=== PATIENT | male | born 2000 | race Caucasian/White ===

== ENCOUNTER 2022-08-21 07:37 | Emergency (ER) | payer BC, OTHER ==
[2022-08-21] MEDS ORDERED: Ondansetron 4 MG/2 ML SDV IVPUSH ONE ×2 (07:42→10:47)
[2022-08-21] MEDS ORDERED: fentaNYL 50 MCG/ML SDV IVPUSH ONE (07:42)
[2022-08-21] MEDS ORDERED: Sodium Chloride 0.9% 10 ML Syringe FLUSH PRN (07:42)
[2022-08-21] MEDS ORDERED: Sodium Chloride 0.9% 2.5 ML Syringe FLUSH PRN (07:42)
[2022-08-21] MEDS ORDERED: Sodium Chloride 0.9% 1,000 ML IV ONE ×2 (07:42→09:36)
[2022-08-21] MEDS ORDERED: Ondansetron 4 MG/2 ML SDV ONE ×2 (07:50→10:47)
[2022-08-21] MEDS ORDERED: fentaNYL 50 MCG/ML SDV ONE (07:50)
[2022-08-21] MEDS ORDERED: Iopamidol 755 MG/ML 500 ML Multipack Bottle IVPUSH STA ×2 (08:20→09:22)
[2022-08-21 08:32] LABS: BLOOD UREA NITROGEN,BUN 18 mg/dL (7.0-18.0); CARBON DIOXIDE,CO2 13.2 mmol/L (21.0-32.0); CHLORIDE,CL 101 mmol/L (98-107); GLUCOSE RANDOM 469 mg/dL (74-106); LIPASE 331 U/L (73-393); POTASSIUM,K 3.6 mmol/L (3.5-5.1); SODIUM,NA 135 mmol/L (136-148)
[2022-08-21 09:10] LABS: ESTIMATED GFR 58 mL/min (>60)
[2022-08-21] MEDS ORDERED: 50% Dextrose in Water 50 ML Syringe IVPUSH PRN (09:38)
[2022-08-21] MEDS ORDERED: Insulin Regular, Human 100 Units/ML 10 ML Vial IVPUSH ONE (09:38)
[2022-08-21] MEDS ORDERED: Glucagon,Human Recombinant 1 MG Vial IM PRN (09:38)
[2022-08-21] MEDS ORDERED: Diphtheria,Pertussis(Acell),Tetanus Vaccine 0.5 ML Syringe IM ONE (09:43)
[2022-08-21 09:45] LABS: CORONAVIRUS COVID-19 NAA NEGATIVE (NEGATIVE); INFLUENZA A NAA NEGATIVE (NEGATIVE); INFLUENZA B NAA NEGATIVE (NEGATIVE); RESPIRATORY SYNCYTIAL VIR NAA NEGATIVE (NEGATIVE)
[2022-08-21] MEDS ORDERED: Insulin Regular in 0.9 % NACL 100 ML IV SCH (09:45)
[2022-08-21] MEDS ORDERED: Tranexamic Acid 1,000 MG/10 ML Vial IV ONE ×2 (10:33→10:34)
[2022-08-21] MEDS ORDERED: Tranexamic Acid 1,000 MG/10 ML Vial ONE (10:35)
[2022-08-21] MEDS ORDERED: Lidocaine 2% Viscous Solution 15 ML UD ONE (10:41)
[2022-08-21] MEDS ORDERED: Lidocaine 2% Viscous Solution 15 ML UD PO ONE (10:42)
[2022-08-21] MEDS ORDERED: fentaNYL 100 MCG/2 ML SDV IVPUSH ONE (10:53)
[2022-08-21] MEDS ORDERED: fentaNYL 100 MCG/2 ML SDV ONE (10:53)
[2022-08-21] MEDS ORDERED: Rocuronium 100 MG/10 ML MDV IVPUSH ONE (11:00)
[2022-08-21] MEDS ORDERED: Atropine 0.1 MG/ML 10 ML Syringe ONE (11:01)
[2022-08-21] MEDS: EPINEPHrine 1:10,000 1 MG/10 ML Syringe IVPUSH ONE ×16 (11:02→13:18)
[2022-08-21] MEDS ORDERED: Pantoprazole 80 MG in Sodium Chloride 0.9% 10 ML IVPUSH ONE (11:23)
[2022-08-21] MEDS ORDERED: SODIUM CHLORIDE 0.9% IV SCH (11:30)
[2022-08-21] MEDS ORDERED: KETAMINE IV SCH (11:30)
[2022-08-21] MEDS ORDERED: Adenosine 6 MG/2 ML SDV ONE (11:49)
[2022-08-21] MEDS ORDERED: Adenosine 6 MG/2 ML SDV IVPUSH ONE (11:50)
[2022-08-21] MEDS ORDERED: Ketamine 500 mg/10 ML MDV ONE (12:04)
[2022-08-21] MEDS ORDERED: Norepinephrine Bit/D5W Premix 250 ML ONE (12:16)
[2022-08-21] MEDS ORDERED: Sodium Bicarbonate 8.4% 50 MEQ/50 ML Syringe IVPUSH ONE (12:20)
[2022-08-21 12:28] LABS: CARBON DIOXIDE,CO2 17.8 mmol/L (21.0-32.0); POTASSIUM,K 3.3 mmol/L (3.5-5.1)
[2022-08-21] MEDS ORDERED: Norepinephrine Bit/D5W Premix 250 ML IV SCH (12:30)
[2022-08-21] MEDS ORDERED: Norepinephrine 4 MG in Dextrose 5% in Water 246 ML IV SCH ×2 (12:45)
[2022-08-21] MEDS ORDERED: EPINEPHrine 1 MG/1 ML Amp ONE (13:12)
== END 2022-08-21 13:21 | disposition expired ==
LOC: MW.ED 07:37
DX: S22.31XA Fracture of one rib, right side, initial encounter for closed fracture (principal); S26.00XA Unspecified injury of heart with hemopericardium, initial encounter; S27.301A Unspecified injury of lung, unilateral, initial encounter; I21.4 Non-ST elevation (NSTEMI) myocardial infarction; J98.4 Other disorders of lung; I71.019 Dissection of thoracic aorta, unspecified; E11.10 Type 2 diabetes mellitus with ketoacidosis without coma; N17.9 Acute kidney failure, unspecified; R77.8 Other specified abnormalities of plasma proteins; Z20.822 Contact with and (suspected) exposure to COVID-19; Z88.0 Allergy status to penicillin; Z23 Encounter for immunization; V49.40XA Driver injured in collision with unspecified motor vehicles in traffic accident, initial encounter; Y92.410 Unspecified street and highway as the place of occurrence of the external cause
CPT/HCPCS: 0241U; 31500; 36415; 36430; 36600; 43752; 70450; 71045; 71260; 71275; 72125; 73552; 73562; 74177; 80053; 80305; 80307; 81001; 82803; 82947; 83605; 83690; 83735; 84484; 85025; 85610; 85730; 86850; 86900; 86901; 86920; 90471; 90715; 92950; 93005; 96361; 96365; 96375; 96376; 99291; A9270; J0153; J0171; J0461; J1815; J2405; J3010; J3490; J7030; P9016; Q9967; 72128-26; 72131-26